=== PATIENT | female | born 1945 | race Caucasian/White ===

== ENCOUNTER 2020-12-05 21:57 | Emergency (ER) | payer OTHER ==
[~2020-12-05] VITALS: Ht 157.5 cm; Wt 46.7 kg
[~2020-12-05 21:57] MED LIST: ADVAIR HFA 115-12 GM INH; ALBUTEROL2.5 MG/31 INH; ATIVAN0.5 M1 PO; ATIVAN0.5 MG PO; AZITHROMYCIN 2250 MG PO; BACTRIM DS TAB1 EACH PO; BISOPROLOL FUM2.5 MG PO; BUDEPRION SR150 MG PO; CEFTIN 250 MG250 MG PO; CEFUROXIME250 MG PO; CIPRO500 MG; CLONAZEPAM 1 MG1 M1 PO; CLOTRIMAZOLE-BE15 GM TP; COLACE 100 MG100 MG PO; CYMBALTA60 MG PO; FAMCYCLOVIR 50500 M1; FOSAMAX 70 MG T70 M1 PO; HYDROCHLOROTHIA25 M1 PO; HYDROCODON-ACE1 EAC8 PO; IPRATROPIUM BROMIDE INH; LEVAQUIN 250 M250 MG PO; LEVAQUIN 500 M500 M2 PO; LIDOCAINE 22 %/30 GM TOP; MAXZIDE-25 MG1 EACH PO; MEDROLDOSEPACK PO; MOM PO; MUCINEX TA600 MG/TA1 PO; MUCINEX TA600 MG/TA2 PO; NORCO 5-325 TA1 EACH PO; ONDANSETRON HCL4 M2 PO; PAIN & FEVER325 MG PO; PERCOCET 5-3251 EACH PO; PREDNISONE 10 M10 M1 PO; PREDNISONE 10 M10 MG PO; PREDNISONE 20 M20 M1 PO; PREDNISONE 20 M20 MG PO; PROAIR HFA8.5 GM INH; SYMBICORT160 MCG/4. INH; SYMBICORT80 MCG/4.1 INH; SYNTHROID75 MCG PO; TOPROL XL25 MG PO; TOPROL XL50 MG PO; TRAZODONE HCL50 MG PO; TYLENOL325 MG PO; VICODIN 5-3001 EACH PO; XOPENEX0.63 MG/3 INH; ZOFRAN ODT4 MG PO; ZOLOFT 50 MG TA50 M1 PO
[2020-12-05 23:11] LABS: ABSOLUTE NEUTROPHILS 12.3 thou/uL (1.4-8.2); BASOPHILS 0.4 % (0.0-2.0); EOSINOPHILS 1.9 % (0.0-3.0); HEMATOCRIT 33.8 % (37.0-47.0); LYMPHOCYTES 9.4 % (24.0-44.0); MCH 30.9 pg (26.0-34.0); MCHC 32.5 g/dL (28.0-37.0); MCV 95.1 fL (80.0-100.0); MONOCYTES 8.2 % (1.0-8.0); PLATELET COUNT 205 thou/uL (150-400); POLYS 80.1 % (36.0-66.0); RBC 3.55 mil/uL (4.20-5.00); RDW 14.2 % (10.5-14.5); WBC 15.4 thou/uL (4.0-11.0)
[2020-12-05 23:21] LABS: ANION GAP 9 mmol/L (7-16); BUN 22 mg/dL (7-18); CALCIUM 8.2 mg/dL (8.5-10.1); CHLORIDE 103 mmol/L (98-107); CO2 27 mmol/L (21-32); CREATININE 0.9 mg/dL (0.6-1.0); GLUCOSE 87 mg/dL (74-106); POTASSIUM 4.3 mmol/L (3.5-5.1); SODIUM 139 mmol/L (136-145)
[2020-12-05 23:32] LABS: ALBUMIN 2.9 g/dL (3.4-5.0); MAGNESIUM 1.8 mg/dL (1.8-2.4); SGOT 17 U/L (15-37); SGPT 22 U/L (30-65); TOTAL BILIRUBIN 0.2 mg/dL (0.2-1.0); TOTAL PROTEIN 6.2 g/dL (6.4-8.2); TROPONIN-I <0.06 ng/mL (<0.06)
[2020-12-05 23:57] LABS: URINE BILIRUBIN NEGATIVE (Negative); URINE BLOOD NEGATIVE (Negative); URINE CLARITY SL CLOUDY; URINE COLOR YELLOW; URINE GLUCOSE-RANDOM* NEGATIVE (Negative); URINE KETONES NEGATIVE (Negative); URINE LEUKOCYTES-REFLEX TRACE (Negative); URINE NITRITE-REFLEX NEGATIVE (Negative); URINE PROTEIN (DIPSTICK) NEGATIVE (Negative); URINE SPECIFIC GRAVITY 1.015 (1.005-1.035); URINE UROBILINOGEN 0.2 E.U./dl (0.2-1.0)
[2020-12-06 00:25] VITALS: BP 139/57
--- NOTE | 2020-12-08 07:10 | EKG ---
[place] [address] [facility] ED[address] [place] [address] ELECTROCARDIOGRAM REPORT Name: SERVANDO SMITH [id number] Admission: 12/05/20 Attend Phys: Discharge: 12/06/20 Date of : 41 Report #: [id number] [facility] ED Test Date: 2020-12-05 Test Time: 22:22:44 Pat Name: SERVANDO SMITH Department: Room: Gender: F Aids Counselor: LORENA GRACE : 1945 Requested By: Cr Barlow Order Number: [id number] MD: Austin Helm Measurements Intervals [place] Rate: 63 P: 7 PA: 147 QRS: -32 QRSD: 123 T: 73 QT: 428 QTc: 439 Interpretive Statements Sinus rhythm Left bundle branch block Compared to ECG 03/03/2015 14:54:04 Left bundle-branch block now present Left-axis deviation no longer present Myocardial infarct finding no longer present Electronically Signed On 12-08-2020 7:10:31 CDT by Austin Helm [email or web address] <ELECTRONICALLY SIGNED> By: Austin Helm MD, [facility] 06/709 21 21 Austin Helm MD, [facility] /EPI
== END 2020-12-06 00:25 | disposition home or self-care (01) ==
LOC: ER 21:57
PROVIDERS: Emergency Medicine
DX: I10 Essential (primary) hypertension (principal); R41.0 Disorientation, unspecified; J45.909 Unspecified asthma, uncomplicated; Z98.890 Other specified postprocedural states; Z90.49 Acquired absence of other specified parts of digestive tract; Z88.6 Allergy status to analgesic agent; Z72.0 Tobacco use